=== PATIENT | female | born 1990 | race Hispanic/Latino ===

== ENCOUNTER 2019-10-05 19:02 | Inpatient (IN) | payer OTHER, MEDICAID, SELFPAY ==
[2019-10-05] VITALS (10 sets, daily range): BP systolic 102–120; BP diastolic 60–79; PULSE 60–75; TEMP 37.1–37.2; BMI 27.5
[2019-10-05 19:52] LABS: Basophils Percent Auto 0.2 % (0.2-1.2); Eosinophils Absolute Auto 0.1 K/mm3 (0-0.3); Eosinophils Percent Auto 0.8 % (0-4.4); Hematocrit 37.5 % (37.0-47.0); Hemoglobin 12.6 g/dL (12.0-15.0); Immature Granulocyte Absolute 0.04 K/mm3 (0.00-0.031); Immature Granulocyte Percent A 0.4 % (0-0.5); Lymphocytes Absolute Auto 1.61 K/mm3 (0.9-3.2); Lymphocytes Percent Auto 15.1 % (18.3-44.2); Mean Corpuscular HGB Conc 33.6 g/dl (32-36); Mean Corpuscular Hemoglobin 30.7 pg (26-34); Mean Corpuscular Volume 91.5 fl (80-100); Mean Platelet Volume 11.6 fl (7.4-10.4); Monocytes Absolute Auto 0.7 K/mm3 (0.1-0.6); Monocytes Percent Auto 6.4 % (2.6-8.5); Neutrophils Absolute Auto 8.2 K/mm3 (1.3-6.7); Neutrophils Percent Auto 77.1 % (45.5-73.1); Platelet Count Result 167 k/mm3 (150-375); White Blood Count 10.7 K/mm3 (4.5-10.0)
[2019-10-05] MEDS: LACTATED RINGERS 1,000 ML 125 ML IV CONT (19:54)
[2019-10-05] MEDS: AMPICILLIN 2 GM/NS 100 ML 2 GM/100 ML BAG IVPB (19:55)
[2019-10-05] MEDS: DINOPROSTONE 10 MG VAG INSERT VAGINAL (20:00)
[2019-10-05 20:11] LABS: Amphetamine Screen Urine Negative (Negative); Barbiturate Screen Urine Negative (Negative); Benzodiazepines Screen Urine Negative (Negative); Cannabinoid Screen Urine Positive (Negative); Cocaine Screen Urine Negative (Negative); Methadone Screen Urine Negative (Negative); Opiate Screen Urine Negative (Negative); Phencyclidine Screen Urine Negative (Negative)
--- NOTE | 2019-10-05 20:16 | LDADM ---
This patient, Rox Escobar, was admitted to Labor/Delivery/Recovery 108 on 10/05/19 at 19:02. Plans for labor, pain management and were discussed with patient. Patient/family oriented to hospital policies and general routines including ID bracelet, bed and alarms, visiting hours, pain management, procedures, bathroom and other care routines, personal items, smoking policy, room service/diet and guest tray routines, infant security routines, and visiting hours. Patient/Family are encouraged to report perceived risks to care and to ask questions if they do not understand what they are told or what they should do. See OBIX for further documentation.
[2019-10-05] MEDS: AMPICILLIN 1 GM/NS 50 ML 1 GM/50 ML BAG IVPB (23:54)
[2019-10-06] VITALS (42 sets, daily range): BP systolic 88–187; BP diastolic 12–159; PULSE 57–206; RESP 13–16; TEMP 36.2–37; O2SAT 99–100
[2019-10-06] MEDS: ONDANSETRON INJ 4 MG/2 ML VIAL IV PUSH (00:04)
[2019-10-06] MEDS: AMPICILLIN 1 GM/NS 50 ML 1 GM/50 ML BAG IVPB (04:10)
[2019-10-06] MEDS: OXYTOCIN 30 UNITS/NS 500 ML 30 UNITS/500 ML BAG IV CONT (04:10)
[2019-10-06] MEDS: LACTATED RINGERS 1,000 ML 125 ML IV CONT (06:47)
--- NOTE | 2019-10-06 07:20 | WPDANESEPPF ---
Anes - Initial Pre Proc Eval Procedure: Labor Epidural Date/Time: 10/06/19 07:20 Surgeon: Steven Fonseca MD Pre Op Diagnosis: IOL Patient Data Age: 29 Gender: F Height: 1.6 m Weight: 70.5 kg Last Vital Signs Temp 36.6 C 10/06/19 06:30 Pulse 63 10/06/19 07:00 BP 98/64 L 10/06/19 07:00 Allergies Allergy/AdvReac Type Severity Reaction Status Date / Time No Known Allergies Allergy Unverified 03/20/19 15:36 Home Medications Medication Instructions Recorded Confirmed Type PNV cmb#95-ferrous fumarate-FA 4 tablet PO PRN PRN 03/20/19 10/05/19 History [] folic acid See Rx Instructions .ROUTE .COMPLEX 03/20/19 10/05/19 History ondansetron See Rx Instructions .ROUTE .COMPLEX 03/20/19 10/05/19 History Laboratory Tests 10/05/19 10/05/19 10/05/19 19:44 19:44 19:44 WBC 10.7 K/mm3 H K/mm3 (4.5-10.0) RBC 4.10 M/mm3 L M/mm3 (4.2-5.4) Hgb 12.6 g/dL g/dL (12.0-15.0) Hct 37.5 % % (37.0-47.0) MCV 91.5 fl fl (80-100) MCH 30.7 pg pg (26-34) MCHC 33.6 g/dl g/dl (32-36) RDW 13.0 % % (11.5-14.5) Plt Count 167 k/mm3 k/mm3 (150-375) MPV 11.6 fl H fl (7.4-10.4) Immature Gran % (Auto) 0.4 % % (0-0.5) Neut % (Auto) 77.1 % H % (45.5-73.1) Lymph % (Auto) 15.1 % L % (18.3-44.2) Alfalfa % (Auto) 6.4 % % (2.6-8.5) Eos % (Auto) 0.8 % % (0-4.4) Baso % (Auto) 0.2 % % (0.2-1.2) Lymph # (Auto) 1.61 K/mm3 K/mm3 (0.9-3.2) Alfalfa # (Auto) 0.7 K/mm3 H K/mm3 (0.1-0.6) Eos # (Auto) 0.1 K/mm3 K/mm3 (0-0.3) Baso # (Auto) 0.0 K/mm3 K/mm3 (0.0-0.1) Abs Immat Gran (auto) 0.04 K/mm3 H K/mm3 (0.00-0.031) Absolute Neuts (auto) 8.2 K/mm3 H K/mm3 (1.3-6.7) Absolute Nucleated RBC 0.0 K/mm3 K/mm3 (0.0-0.012) Nucleated RBC % 0.0 % % (0.0-0.2) Urine Opiates Screen Urine Methadone Screen Ur Barbiturates Screen Ur Phencyclidine Scrn Ur Amphetamine Screen U Benzodiazepines Scrn Urine Cocaine Screen U Cannabinoids Screen RPR Pending Blood Type O Positive Antibody Screen Negative 10/05/19 19:44 WBC RBC Hgb Hct MCV MCH MCHC RDW Plt Count MPV Immature Gran % (Auto) Neut % (Auto) Lymph % (Auto) Alfalfa % (Auto) Eos % (Auto) Baso % (Auto) Lymph # (Auto) Alfalfa # (Auto) Eos # (Auto) Baso # (Auto) Abs Immat Gran (auto) Absolute Neuts (auto) Absolute Nucleated RBC Nucleated RBC % Urine Opiates Screen Negative (Negative) Urine Methadone Screen Negative (Negative) Ur Barbiturates Screen Negative (Negative) Ur Phencyclidine Scrn Negative (Negative) Ur Amphetamine Screen Negative (Negative) U Benzodiazepines Scrn Negative (Negative) Urine Cocaine Screen Negative (Negative) U Cannabinoids Screen Positive A (Negative) RPR Blood Type Antibody Screen Patient hx anesthesia problems: none Family hx anesthesia problems: none PMFSH Past Medical History Medical History Patient denies significant medical history Family History Family History Other No pertinent family history Social History Social History (Updated 03/20/19 @ 17:09 by Angelito Ortega PA-C) Smoking status: Former smoker Tobacco type: cigarettes Second hand tobacco smoke exposure: No Additional smoking assessment comments: smoked socially Gender identity (if verbalized by the patient): Female Anes - Eval Final Pr
--- NOTE | 2019-10-06 08:27 | WPDHPUPDATE1 ---
History and Physical Update Update Date/Time: 10/06/19 08:27 History and Physical has been reviewed, including an updated exam of the patient. There are NO changes in the patient's condition. Risks, benefits, and alternatives have been discussed and questions answered. Patient agrees to proceed with procedure.
--- NOTE | 2019-10-06 08:27 | WPDOBADMIT ---
Obstetrics - Admit Note Admission Note: record reviewed. No pertinent additions to the history and/or any subsequent changes in the physical findings that are not consistent with the expected course of the were found. Additions to the history and/or subsequent changes in the physical findings follow. None.
--- NOTE | 2019-10-06 08:27 | PM.OBPRVD ---
OB - Delivery Note Procedure Delivery date: 10/06/19 Route of delivery: Episiotomy description: None Laceration description: None Specimen: No Estimated blood loss (mL): 300 Anesthesia type: Epidural Disposition: PACU Narrative: Patient prepped and draped in usual sterile manner for this procedure. Maternal expulsive efforts readily delivered vertex with nuchal cord noted and reduced. Rest of baby was delivered without difficulty cord was clamped and cut and placenta delivered spontaneously. Cervix vagina and vulva were inspected no lacerations or tears. Uterus was well contracted with no significant bleeding. At this point the procedure was considered terminated immediate postoperative condition mother and baby both excellent. Baby Weeks of gestation at delivery: 39 gender: Male Weight (pounds): 6 Weight (ounces): 12 score one minute: 8 score five minutes: 9
[2019-10-06] MEDS: OXYTOCIN 30 UNITS/NS 500 ML 30 UNITS/500 ML BAG 125 UNITS IV CONT (08:38)
[2019-10-06 09:31] LABS: Rapid Plasma Reagin Non-Reactive (NonReactive)
[2019-10-06] MEDS: IBUPROFEN 600 MG TABLET PO ×2 (10:44→18:50)
--- NOTE | 2019-10-06 14:30 | PC.NURSE ---
Upon entering mother has to breast. Mother is able to independently latch with appropriate positioning/alignment using cross cradle. Reviewed positioning/alignment, holding breast and asymmetrical latch on. was latched correctly. Infant nursed eagerly, with steady draws and frequent swallowing noted. Reviewed signs of a correct latch, effective nursing and suck swallow ratio. Infant was able to maintain latch without discomfort to mother. Nipple care reviewed. Instructed mother to call out for RN assistance if she is unable to latch for feeding or she has discomfort with nursing. Instructed feeding should be initiated three hours from start of last feeding or if feeding cues are noted before. Mother voiced understanding of information shared. Reviewed infant feeding cues, frequencies, duration of feedings, feeding elimination flow sheet, and signs of adequate intake. Demonstrated stimulation techniques to wake for feeding. Mother is concerned is getting enough with , discussed signs of adequate intake, feeding freq., and required output, reasonable weight loss and jaundice. Mother is pleased is latching, she has attempted to breastfeed two other children with latch issues and discontinued within days of . Mother states she feels confident to continue effective at home. Reviewed transition to breast milk, signs of adequate intake, and engorgement/relief. Instructed to call ICP if intake/output less than required. Reviewed regular medications mother is taking. Information provided per Cindi. Reviewed community resources on the [employer] website and in the Mom/Baby guide. Information on outpatient services provided. Mother has no further questions at this time.
--- NOTE | 2019-10-06 15:50 | PCCCNOTE ---
Addendum entered by DOMINGUEZ Clark 10/07/19 07:16: Intake ID#[id number]. Original Note: SS Note. Received referral. Pt. positive for THC on UDS. Meconium on baby is pending. Spoke to pt. and she indicates using THC 2 or 3 times for morning sickness. She states having informed her OBGYN of same. RN reports that pt. used cocaine early on in before she knew she was . During my conversation she denies any other drug use. She denies any involvement or history with DCFS. Reported pt. situation to DCFS and it is being taken as information. She lives with spouse and 2 other children (16 year old boy and 6 year old girl). She states having all needed items to care for baby at return home with them at anticipated discharge tomorrow. She states that her mother and sister are also supportive. She indicates that she doesn't qualify for WIC. She declines any further resources.
--- NOTE | 2019-10-06 17:04 | PC.NURSE ---
1125-Patient transferred to post room #278 via wheelchair. Support person present. Oriented to unit, room, information board, rooming in, admission packet and security measures. Patient verbalizes understanding.
[2019-10-07 04:59] LABS: Hematocrit 35.2 % (37.0-47.0); Hemoglobin 11.8 g/dL (12.0-15.0)
[2019-10-07 07:35] VITALS: BP 105/62; PULSE 68; RESP 18; TEMP 36.7
--- NOTE | 2019-10-07 09:05 | PM.OBDSVD ---
OB - DS: Summary OB Procedures : None OB Procedures Intrapartum: Spontaneous Vag Delivery OB Procedures: : None Time Spent with Patient Time attestation: Total time spent providing and/or coordinating discharge services: DS: Data Data Completed and Pending Labs on day of discharge: Labs from last 24 hours 10/07/19 10/05/19 04:24 19:44 Hgb 11.8 L Hct 35.2 L RPR Non-reactive Discharge Plan Discharge Consulting providers: Chano Mack Discharging Clinician: Steven Fonseca Patient Disposition: Home, Self-Care Activity: as tolerated Diet: as tolerated Patient Instructions: Antibiotic Form Stand Alone Forms: General Discharge Information Follow-up/Referrals: Steven Fonseca MD [Physician] - 3 Weeks Discharge Medications: New ibuprofen 600 mg Tablet 600 mg PO Q6H PRN (Reason: Cramping) Qty: 30 RF: 0 Continued PNV cmb#95-ferrous fumarate-FA [] 28 mg iron- 800 mcg tablet 4 tablet PO PRN PRN (Reason: Nausea And Vomiting) RF: 0 Discontinued folic acid 1 mg tablet See Rx Instructions .ROUTE .COMPLEX RF: 0 ondansetron 4 mg tablet,disintegrating See Rx Instructions .ROUTE .COMPLEX RF: 0 Date of admission: 10/05/19 19:02 Primary Care Provider: PHYSICIAN,BUILDINGS AND GROUNDS DIRECTOR Admitting Provider: Steven Fonseca Attending physician on admission: Steven Fonseca
--- NOTE | 2019-10-07 11:24 | WPDANLDPN2 ---
Anes-Prog Note L&D Date/Time: 10/07/19 11:24 Comfortable throughout: labor and delivery Neuraxial method: epidural Epidural/Spinal procedure site: clean & non-tender Neuro status: Neuro function grossly intact. Cardiovascular status: normal Respiratory status: normal Airway patency: baseline Mental status: baseline Post-Op hydration status: normal Vital Signs: Last Vital Signs Temp 36.7 C 10/07/19 07:35 Pulse 68 10/07/19 07:35 Resp 18 10/07/19 07:35 BP 105/62 10/07/19 07:35 Pulse Ox 100 10/06/19 19:00 Post-procedural complaints: none Patient feedback: Patient satisfied with anesthetic care.
[2019-10-07] MEDS: IBUPROFEN 600 MG TABLET PO (12:06)
[2019-10-07] MEDS: LANOLIN (LANSINOH) 7.5 GM CREAM 1 APPLIC TOPICAL (12:07)
[2019-10-07] MEDS: MULTIVIT/MIN/PREN/FOL AC/IRON TABLET 1 TAB PO (12:09)
[2019-10-09 08:53] VITALS: BP 107/59; PULSE 66; RESP 16; TEMP 36.6; O2SAT 98
== END 2019-10-07 13:16 | disposition home or self-care (01) | DRG 806 ==
LOC: ANHLDR 10-06 10:01 → ANHOB2 10-06 11:31
PROVIDERS: Admitting Provider Obstetrics & Gynecology; Visit Provider Obstetrics & Gynecology
DX: O62.3 Precipitate labor (principal); O99.324 Drug use complicating childbirth; Z37.0 Single live birth; Z3A.39 39 weeks gestation of pregnancy; F12.90 Cannabis use, unspecified, uncomplicated; O99.824 Streptococcus B carrier state complicating childbirth; O69.81X0 Labor and delivery complicated by cord around neck, without compression, not applicable or unspecified
CPT/HCPCS: 36415; 80307; 85014; 85018; 85025; 86592; 86850; 86900; 86901; A9270; J0290; J2405; J2590; J2795; J3010; J7120